=== PATIENT | male | born 1970 | race Caucasian/White ===

== ENCOUNTER 2022-09-12 08:04 | Day surgery (SDC) | payer OTHER ==
[2022-09-11 14:02] VITALS: BMI 29.4
[2022-09-12 08:30] VITALS: RESP 20
[2022-09-12 09:39] VITALS: TEMP 97.8
[2022-09-12 10:12] VITALS: BP 127/77; PULSE 69
== END 2022-09-12 10:05 | disposition home or self-care (01) ==
LOC: FASU-ENDO 08:04
PROVIDERS: ATTEND Internal Medicine Gastroenterology
PROC: 0DBP8ZX Excision of Rectum, Via Natural or Artificial Opening Endoscopic, Diagnostic (ICD-10-PCS; 2022-09-12)
PROC: 0DJD8ZZ Inspection of Lower Intestinal Tract, Via Natural or Artificial Opening Endoscopic (ICD-10-PCS; principal; 2022-09-12 08:46)
DX: Z12.11 Encounter for screening for malignant neoplasm of colon (principal); D12.8 Benign neoplasm of rectum; D37.4 Neoplasm of uncertain behavior of colon; D01.0 Carcinoma in situ of colon; K63.5 Polyp of colon; K57.30 Diverticulosis of large intestine without perforation or abscess without bleeding
CPT/HCPCS: 88305-TC